=== PATIENT | female | born 2000 ===

== ENCOUNTER 2025-02-01 18:53 | Emergency (ER) | payer OTHER ==
[2025-02-01] MEDS: Take Home: Amoxicillin/Clavulanate K 875-125 MG Tab, 6 Tab Pack PO ONE (20:22)
== END 2025-02-01 20:28 | disposition home or self-care (01) ==
LOC: LL.ED 18:53
DX: H66.001 Acute suppurative otitis media without spontaneous rupture of ear drum, right ear (principal); Z79.899 Other long term (current) drug therapy
CPT/HCPCS: 99283; A9270-GY